=== PATIENT | female | born 1950 | race Caucasian/White ===

== ENCOUNTER 2017-09-17 09:38 | Outpatient (CLI) | payer OTHER ==
[2017-09-17 10:20] LABS: Estimated GFR-MDRD - POC Greater than 90
[2017-09-17 11:28] LABS: Anion Gap 9 mmol/L (10-20); BUN (Urea Nitrogen) 9 mg/dL (9.8-20.1); Calc. Creatinine Clearance 0 mL/min (70-130); Calcium 9.7 mg/dL (7.8-10.44); Carbon Dioxide 32 mmol/L (23-31); Chloride 96 mmol/L (98-107); Estimated GFR-MDRD Greater than 90; Glucose 118 mg/dL (80-115); Sodium 133 mmol/L (136-145)
--- NOTE | 2017-09-17 12:40 | CT ---
PRE AND POST CONTRAST ENHANCED CT IMAGES ABDOMEN AND PELVIS: HISTORY: Hematuria. TECHNIQUE: Pre and post contrast enhanced CT images of the abdomen and pelvis are obtained. FINDINGS: The lung bases are unremarkable, except for some areas of prominent interstitial markings and ground glass opacities in the posterior aspect of the left lower lobe. This may represent some chronic inte rstitial changes versus an area of pneumonitis. Correlate with history and follow-up CT. No evidence of free intraperitoneal air is seen. The liver and spleen are unremarkable. The gallbladder and pancreas are unremarkable. The adrenal glands and kidneys are unremarkable. No dilated loops of small bowel seen. A normal appendix is visualized. The colon contains a moderate amount of stool without evidence of significant distention. No evidenc e of calcifications or masses seen in the kidneys. The ureters are decompressed. There may be a subtle area of wall thickening along the anterior aspect of the urinary bladder. This may represent possible cystitis or diffuse bladder lesion. No other bladder abnormalities seen. IMPRESSION: 1. No evidence of renal masses. 2. Some tiny, hypodense areas seen in the right kidney, possibly representing renal parenchymal khris ical cysts. These, however, are 3 to 4 mm and are too small to characterize on CT. 3. Possible minimal anterior bladder wall thickening. POS: [facility]
[2017-09-17] MEDS ORDERED: Iopamidol 370 76% 100 ML VIAL ONE (17:05)
== END 2017-09-17 09:39 | disposition home or self-care (01) ==
LOC: CT 09:38
PROVIDERS: ATTEND Urology
DX: R31.29 Other microscopic hematuria (principal); N28.89 Other specified disorders of kidney and ureter
CPT/HCPCS: 36415; 74178; 80048; 82565